=== PATIENT | female | born 1960 | race Caucasian/White ===

== ENCOUNTER → 2017-11-19 | Outpatient (CLI) | payer OTHER | LOC: M.RAD 14:51 | DX: G89.29 Other chronic pain (principal); M54.41 Lumbago with sciatica, right side ==

== ENCOUNTER → 2019-08-16 | Outpatient (CLI) | payer OTHER | LOC: M.ULTRA 14:58 | DX: R59.1 Generalized enlarged lymph nodes (principal) ==